=== PATIENT | female | born 1995 | race Caucasian/White ===

== ENCOUNTER 2023-04-21 07:41 | Inpatient (IN) ==
[2023-04-21] MEDS ORDERED: OXYTOCIN 30 UNITS/500 ML BAG IV PRN ×2 (09:24→09:28)
[2023-04-21] MEDS ORDERED: LIDOCAINE 1% LOCAL 20 ML VIAL INFIL PRN (09:24)
--- NOTE | 2023-04-21 09:33 | History & Physical Report ---
Date of Service April 21, 2023 Assessment & Plan (1) Supervision of normal intrauterine in primigravida: Plan: iup at 40 5/7 weeks with SPROM 6 hours ago will start pitocin per protocol planning unmedicated epidural if requested anticipate vaginal Admission and Anticipated Discharge Date Admission Date: April 21, 2023 History of Present Illness Primary Care Provider: Juan Bolton MD Patient is a 27 yo female EDC 04/16/23 presents at 40 5/7 weeks with SPROM for clear fluid at 0300 last night. no regular contractions yet. uncomplicated except for post-term gestation. GBS -negative Allergies Allergy/AdvReac Type Severity Reaction Status Date / Time No Known Allergies Allergy Verified 04/20/23 09:14 Home Medications Medication Instructions Recorded Confirmed Type prenat.vits,masha,oog-[id number] 1 tab PO DAILY 09/07/22 04/20/23 History Patient History Medical History History of anxiety Persistent headaches Surgical History H/O breast biopsy left fibroadenoma removal History of tonsillectomy and adenoidectomy History of wisdom tooth extraction Family History Mother Hypertension Sister Hypothyroidism Grandmother (Paternal) Breast cancer Grandmother (Maternal) Dyslipidemia Social History (Updated 09/07/22 @ 15:47 by Yennifer Camacho) Smoking Status: Never smoker Second Hand Exposure: No; Do You Dip or Chew Tobacco: No; Hx Alcohol Use: Yes Alcohol type: wine Hx Substance Use: No Preferred Language: Nepalese Communication Ability: Effective Visual Impairment: No Limitations Hearing Ability: Normal Water Main Pipe Layer Required: No Beliefs That Will Affect Care: None marital status: marital status details: Max(26) [phone] Current Living Situation: Spouse Current Living Situation Comment: lives with spouse, 1 dog. current occupational status: employed current occupation: [employer] Other Information That Helps Us Care for You: No Feels Safe at Home: Yes Safety Concerns: Feels Safe At This Time Childhood Exposure to Second-Hand Smoke: No caffeine: Yes (coffee) during the past year weight has: increased > 10 lbs Dental Care, Regularly: Yes Physical Activity Frequency: 3-4 Times per Week Physical Activity Frequency Comment: Gym Seatbelt Use: always Sunscreen Use: Yes Assistive Devices: None Review of Systems All systems reviewed & are unremarkable except as noted in HPI & below Physical Exam Constitutional: WD/WN, vitals as above Psychiatric: A+Ox3, euthymic affect Genitourinary: OB Exam Abdomen: + vertex, + estimated weight (7-8 pounds) and + irregular contractions Manual OB Exam: + cervical dilation 1 cm (1-2), + cervical effacement 50% and + station -2 OB Exam Monitor Tracing: + external FHT monitor used, + external uterine monitor used, + category I and + normal FHT variability Results & Data Vital Signs (Past 12 Hours) Vital Signs Pulse BP 04/21/23 08:23 85 130/69 Coding Level of Care Code None Diagnoses Supervision of normal intrauterine in primigravida Z34.00
[2023-04-21] MEDS: LACTATED RINGER'S 1,000 ML IV PRN ×2 (09:50→22:26)
[2023-04-21 09:56] LABS: Hematocrit (blood only) 33.6 % (37.0-47.0); Hemoglobin 11.7 g/dl (12.0-16.0); Mean Corpuscular Hemoglobin 30.8 pg (25.0-34.0); Mean Corpuscular Hgb Conc 34.8 g/dL (32.0-36.0); Mean Corpuscular Volume 88.4 fL (80.0-100.0); Mean Platelet Volume 12.2 fL (9.4-12.4); Platelet Count 157 K/uL (130-400); RDW Coefficient of Variation 13.9 % (11.5-14.5); RDW Standard Deviation 44.7 fL (36.4-46.3); White Blood Count 13.01 K/ul (4.8-10.8)
[2023-04-21] MEDS ORDERED: ePHEDrine sulfate 50 MG/ML AMP ONE (17:46)
[2023-04-21] MEDS ORDERED: SODIUM CHLORIDE 0.9% PF INJ 10 ML VIAL ONE (17:46)
[2023-04-21] MEDS ORDERED: fentaNYL citrate PF 100 MCG/2 ML VIAL ONE (17:46)
[2023-04-21] MEDS ORDERED: LIDOCAINE 2%/EPINEPHRINE 1:200,000 20 ML PF ONE (17:47)
[2023-04-21] MEDS ORDERED: BUPIVACAINE 0.25% PF 30 ML VIAL ONE (17:47)
--- NOTE | 2023-04-21 17:57 | Labor Progress Brief Note ---
Date of Service April 21, 2023 Subjective Patient now requesting epidural Assessment & Plan (1) Encounter for induction of labor: Plan epidural, then can AROM after. Admission and Anticipated Discharge Date Admission Date: April 21, 2023 Physical Exam Genitourinary: Results & Data Vital Signs (Past 12 Hours) Vital Signs Temp Pulse BP 04/21/23 16:34 98.1 F 73 121/75 04/21/23 12:31 98.1 F 80 121/67 04/21/23 11:01 97.9 F 75 123/75 04/21/23 08:23 85 130/69 Coding Level of Care Code None Diagnoses Encounter for induction of labor Z34.90
[2023-04-21] MEDS ORDERED: ePHEDrine sulfate 50 MG/ML AMP IV PRN (18:03)
[2023-04-21] MEDS ORDERED: SODIUM CHLORIDE 0.9% PF INJ 10 ML VIAL EPI PRN (18:03)
[2023-04-21] MEDS ORDERED: NALBUPHINE HCL INJ 10 MG/ML AMP IV PRN (18:03)
[2023-04-21] MEDS ORDERED: SODIUM CHLORIDE 0.9% PF INJ 10 ML VIAL EPI STA (18:03)
[2023-04-21] MEDS ORDERED: ROPIVACAINE 0.5% PF 5 MG/ML 20 ML VIAL EPI PRN (18:03)
[2023-04-21] MEDS ORDERED: NALOXONE HCL 0.4 MG/1 ML VIAL/CARP IV PRN (18:03)
[2023-04-21] MEDS ORDERED: LIDOCAINE 2% MPF LOCAL 5 ML VIAL EPI PRN (18:03)
[2023-04-21] MEDS ORDERED: fentaNYL citrate PF 100 MCG/2 ML VIAL EPI STA (18:03)
[2023-04-21] MEDS ORDERED: NALOXONE HCL 1 MG in SODIUM CHLORIDE 0.9% 1,000 ML IV PRN (18:03)
[2023-04-21] MEDS ORDERED: diphenhydrAMINE 50 MG/ML VIAL IV PRN (18:03)
[2023-04-21] MEDS ORDERED: BUPIVACAINE 0.25% PF 30 ML VIAL EPI STA (18:03)
[2023-04-21] MEDS ORDERED: LIDOCAINE 2%/EPINEPHRINE 1:200,000 20 ML PF EPI STA (18:03)
[2023-04-21] MEDS ORDERED: BUPIVACAINE 0.25% PF 30 ML VIAL EPI PRN (18:03)
[2023-04-21] MEDS ORDERED: fentaNYL citrate PF 100 MCG/2 ML VIAL EPI PRN (18:03)
--- NOTE | 2023-04-21 18:04 | Anesthesiology Consultation ---
Date of Service April 21, 2023 Assessment & Plan (1) Encounter for pre-operative examination: Chart Review Chart Review: Patient NOT seen in Pre Admission Testing and Acceptable Risk for Labor Epidural Consults Requested none History Height/Weight Height: 5 ft 4 in Weight: 68.492 kg Allergies Allergy/AdvReac Type Severity Reaction Status Date / Time No Known Allergies Allergy Verified 04/20/23 09:14 Medications Home Medications Medication Instructions Recorded Confirmed Last Taken prenat.vits,masha,uxf-viym-mywnj 1 tab PO DAILY 09/07/22 04/20/23 Unknown Active Medications Generic Name Dose Route Start Last Admin Trade Name Freq PRN Reason Stop Dose Admin Lactated Ringer's 1,000 mls @ 125 mls/hr 04/21/23 09:24 04/21/23 09:50 Lr IV 04/23/23 09: 125 mls/hr .Q8H PRN Administration L&D Protocol Protocol Oxytocin 30 units in 500 mls @ 16 mls/hr 04/21/23 09:28 04/21/23 16:30 Pitocin IV 04/23/23 09:27 0.96 units/hr .Q24H PRN 16 mls/hr Labor Induction/Augmentation Titration Protocol 0.96 UNITS/HR Past Medical History Medical History (Updated 04/21/23 @ 18:04 by Tomas Aquino MD) Encounter for pre-operative examination History of anxiety Persistent headaches Exercise / Class Metabolic Activity II 4-5 Yardwork/Stairs/Walk up hill Past Family History Family History Mother Hypertension Sister Hypothyroidism Grandmother (Paternal) Breast cancer Grandmother (Maternal) Dyslipidemia Past Surgical History Surgical History H/O breast biopsy left fibroadenoma removal History of tonsillectomy and adenoidectomy History of wisdom tooth extraction Past Anesthesia History No Hx of Anesthesia Complications and No Family Hx of Anesthesia Complications Social History Smoking Status: Never smoker Do You Dip or Chew Tobacco: No Hx Alcohol Use: Yes Alcohol type: wine Hx Substance Use: No Physical Exam Vital Signs Last Vital Signs Temp 36.7 C 04/21/23 16:34 Pulse 82 04/21/23 18:23 BP 120/70 04/21/23 18:23 Pulse Ox 97 04/21/23 18:23 Testing Laboratory Results 04/21/23 08:31
[2023-04-21] MEDS: fentaNYL 2MCG/ML ROPIVACAINE 1.25MG/ML 100 ML BAG EPI PRN (18:31)
[2023-04-22] MEDS ORDERED: NURSING L&D Epidural Breakthrough Pain Update ONE (02:48)
--- NOTE | 2023-04-22 03:11 | Labor Progress Brief Note ---
Date of Service April 22, 2023 Subjective Patient very pleased with epidural. I tell her that this time when I woke to check her FHT I noted elevated baseline so came out to check her. Does admit to feeling warm, after I discuss the possibility of fever. Assessment & Plan (1) Chorioamnionitis: Plan: Start abx, tylenol suppository, should be able to start 2nd stage soon. Admission and Anticipated Discharge Date Admission Date: April 21, 2023 Physical Exam Genitourinary: /+1 LOF clear to bloody Temp 101.3F currently [place] Q2 with pit @ 18 Results & Data Vital Signs (Past 12 Hours) Vital Signs Temp Pulse Resp BP Pulse Ox O2 Del Method 04/21/23 23:04 97.9 F 16 04/21/23 19:15 98.1 F 16 97 Room Air 04/22/23 03:08 95 H 98 04/22/23 03:03 88 99 04/22/23 02:58 89 04/22/23 02:58 90 108/53 L 98 04/22/23 02:53 96 H 100 04/22/23 02:48 91 H 98 04/22/23 02:47 90 93 04/22/23 02:30 18 04/22/23 02:30 18 04/22/23 02:44 92 H 107/57 L 04/22/23 02:43 93 H 100 04/22/23 02:38 104 H 96 04/22/23 02:34 111 H 90 04/22/23 02:33 128 H 93 04/22/23 02:28 115 H 98 04/22/23 02:23 118 H 97 04/22/23 02:18 96 H 98 04/22/23 02:13 115 H 112/76 94 04/22/23 02:08 106 H 98 04/22/23 02:03 102 H 99 04/22/23 02:00 18 04/22/23 02:00 18 04/22/23 01:58 93 H 106/67 99 04/22/23 01:56 90 92 04/22/23 01:53 82 99 04/22/23 01:48 82 96 04/22/23 01:43 83 106/58 L 97 04/22/23 01:38 84 97 04/22/23 01:30 16 04/22/23 01:30 16 04/22/23 01:33 80 97 04/22/23 01:29 76 113/66 04/22/23 01:28 71 97 04/22/23 01:23 72 97 04/22/23 01:18 87 96 04/22/23 01:13 75 113/67 98 04/22/23 01:08 73 98 04/22/23 01:03 75 98 04/22/23 01:00 98.4 F 83 18 94 04/22/23 00:58 86 115/71 97 04/22/23 00:53 74 97 04/22/23 00:48 74 97 04/22/23 00:44 73 108/66 04/22/23 00:43 77 98 04/22/23 00:38 87 93 04/22/23 00:37 79 93 04/22/23 00:33 69 96 04/22/23 00:31 80 92 04/22/23 00:28 71 122/73 95 04/22/23 00:23 74 96 04/22/23 00:21 70 94 04/22/23 00:18 69 96 04/22/23 00:13 71 04/22/23 00:13 71 120/69 96 04/22/23 00:08 73 96 04/22/23 00:03 76 97 04/22/23 00:00 76 18 93 04/21/23 23:58 72 109/65 95 04/21/23 23:55 99 H 93 04/21/23 23:53 77 95 04/21/23 23:49 72 94 04/21/23 23:48 72 95 04/21/23 23:43 76 97/53 L 96 04/21/23 23:38 73 95 04/21/23 23:33 74 95 04/21/23 23:30 16 04/21/23 23:30 16 04/21/23 23:28 74 94/51 L 96 04/21/23 23:23 73 97 04/21/23 23:18 73 96 04/21/23 23:13 100 H 101/59 L 96 04/21/23 23:09 79 94 04/21/23 23:08 77 95 04/21/23 23:03 76 96 04/21/23 22:58 96 04/21/23 22:58 87 04/21/23 22:58 86 102/60 04/21/23 22:53 71 96 04/21/23 22:48 75 96 04/21/23 22:43 87 106/72 97 04/21/23 22:38 71 98 04/21/23 22:33 69 95 04/21/23 22:30 69 94 04/21/23 22:28 74 110/67 95 04/21/23 22:25 71 94 04/21/23 22:23 70 95 04/21/23 22:18 70 95 04/21/23 22:14 66 108/58 L 04/21/23 22:13 74 96 04/21/23 22:08 76 96 04/21/23 22:07 76 94 04/21/23 22:03 75 96 04/21/23 21:58 68 04/21/23 21:58 72 112/67 96 04/21/23 21:53 69 95 04/21/23 21:48 75 96 04/21/23 21:43 77 111/67 96 04/21/23 21:38 80 95 04/21/23 21:37 86 94 04/21/23 21:33 75 95 04/21/23 21:28 100 H 04/21/23 21:28 96 H 107/59 L 95 04/21/23 21:23 84 97 04/21/23 21:18 91 H 95 04/21/23 21:13 84 90/52 L 97 04/21/23 21:10 87 94 04/21/23 21:08 85 96 04/21/23 21:03 86 96 04/21/23 20:59 91 H 104/54 L 04/21/23 20:58 88 97 04/21/23 20:53 92 H 96 04/21/23 20:48 91 H 97 04/21/23 20:44 95 H 109/57 L 04/21/23 20:43 91 H 96 04/21/23 20:38 86 96 04/21/23 20:33 82 95 04/21/23 20:32 86 93 04/21/23 20:28 77 04/21/23 20:28 85 93/50 L 95 04/21/23 20:23 83 95 04/21/23 20:18 84 95 04/21/23 20:13 81 96 04/21/23 20:14 78 105/57 L 04/21/23 20:08 78 95 04/21/23 20:05 86 94 04/21/23 20:03 88 96 04/21/23 19:58 80 113/55 L 96 04/21/23 19:53 74 96 04/21/23 19:48 82 96 04/21/23 19:43 74 117/71 98 04/21/23 19:38 85 97 04/21/23 19:33 93 H 97 04/21/23 19:28 83 113/70 95 04/21/23 19:23 85 95 04/21/23 19:21 85 93 04/21/23 19:18 89 97 04/21/23 19:13 81 96 04/21/23 19:12 114/70 04/21/23 19:08 96 H 97 04/21/23 19:07 88 113/70 04/21/23 19:03 92 H 97 04/21/23 19:02 190 H 109/55 L 04/21/23 18:58 78 96 04/21/23 18:57 82 117/63 04/21/23 18:53 90 97 04/21/23 18:52 82 117/62 04/21/23 18:48 96 H 96 04/21/23 18:46 99 H 111/56 L 04/21/23 18:43 87 04/21/23 18:43 84 125/60 97 04/21/23 18:40 109 H 113/60 04/21/23 18:38 79 97 04/21/23 18:37 85 115/67 04/21/23 18:34 83 112/63 04/21/23 18:33 94 H 97 04/21/23 18:31 84 111/66 04/21/23 18:28 88 115/73 97 04/21/23 18:25 91 H 118/78 04/21/23 18:23 82 120/70 97 04/21/23 18:20 96 H 132/61 04/21/23 18:18 85 97 04/21/23 18:14 79 120/73 04/21/23 18:13 85 97 04/21/23 18:10 78 125/76 04/21/23 18:08 78 98 04/21/23 18:03 76 99 04/21/23 16:34 98.1 F 73 121/75 Coding Level of Care Code None Diagnoses Chorioamnionitis O41.1290
[2023-04-22] MEDS ORDERED: AMPICILLIN/SULBACTAM SOD 3,000 MG in SODIUM CHLOR 0.9% MINI-B 100 ML IV STA (03:13)
[2023-04-22] MEDS ORDERED: ACETAMINOPHEN 650 MG SUPP PR STA (03:14)
[2023-04-22] MEDS: fentaNYL 2MCG/ML ROPIVACAINE 1.25MG/ML 100 ML BAG EPI ONE (03:17)
[2023-04-22] MEDS: fentaNYL 2MCG/ML ROPIVACAINE 1.25MG/ML 100 ML BAG EPI PRN (03:21)
[2023-04-22] MEDS: LACTATED RINGER'S 1,000 ML IV PRN (04:59)
--- NOTE | 2023-04-22 08:09 | Delivery Summary ---
Vaginal Delivery Summary Date of Service April 22, 2023 Vaginal Delivery Summary DIAGNOSES: 1. [place] intrauterine at 40w6d gestation. 2. Induction of Labor, following PROM. 3. Group B Streptococcus Neg. 4. Chorioamnionitis. PROCEDURE: Spontaneous vaginal delivery and repair of second degree laceration. SURGEON: Ninoska Cisneros MD. SLEDGER: None. ESTIMATED BLOOD LOSS: 350 mL. COMPLICATIONS: None. PLACENTA: Spontaneous and intact with a 3-vessel cord. DISPOSITION: Stable to labor and delivery. DESCRIPTION: The patient pushed well and brought the head to in DOA position. The 's head was allowed to deliver with contraction force and no further active pushing, with the perineum protected during this time. There was one tight loop of nuchal cord, reduced at the perineum. The left shoulder was anterior. The shoulders and body delivered without any difficulty, and the infant was placed on the maternal abdomen. It was vigorous and moving all extremities, and making respiratory efforts. The cord was doubly clamped by the MD and then cut by the FOB. The placenta delivered spontaneously and was noted to be intact and with a 3VC. The cervix, vagina and perineum were examined and were found to have a second degree laceration which was repaired in the usual manner using vicryl suture, including a crown stitch to rebuild the perineal body. The fundus was firm and lochia minimal immediately after delivery. [facility] Vaginal Delivery Charge Vaginal Delivery Codes: 40173 global code for the antepartum, delivery, and post-
--- NOTE | 2023-04-22 09:08 | Anesthesia Procedure Note ---
Date of Service April 22, 2023 Anesthesia Post Epidural Note Vital Signs Vital Signs: Temp Pulse Resp BP Pulse Ox O2 Del Method 38.4 C H 86 16 108/76 93 Room Air 04/22/23 05:37 04/22/23 09:00 04/22/23 05:30 04/22/23 09:00 04/22/23 08:19 04/21/23 19:15 Pain Intensity Abdomen: Pain Intensity: 0 Notes Mental Status: alert / awake / arousable and participated in evaluation Nausea / Vomiting: adequately controlled Pain: adequately controlled Airway Patency, RR, SpO2: stable & adequate BP & HR: stable & adequate Hydration State: stable & adequate Neuraxial Anesthesia: was administered and sensory block is resolving Anesthetic Complications: no major complications apparent Epidural: Removed without complications and With tip intact
[2023-04-22] MEDS ORDERED: oxyCODONE/ACETAMINOPHEN 5mg/325mg TAB PO PRN (09:10)
[2023-04-22] MEDS ORDERED: BENZOCAINE 20% SPRY 85 APPLN/85 GM CAN EXT PRN (09:10)
[2023-04-22] MEDS ORDERED: HYDROCORTISONE ACETATE 25 MG SUPP PR PRN (09:10)
[2023-04-22] MEDS ORDERED: DIPHTHERIA/TETANUS/PERTUSSIS Vaccine (Tdap, Age 7+yrs) 0.5mL SYR/VL IM ONE (09:10)
[2023-04-22] MEDS ORDERED: ACETAMINOPHEN 325 MG TAB PO PRN (09:10)
[2023-04-22] MEDS: IBUPROFEN 600 MG TAB PO PRN ×3 (09:39→19:59)
[2023-04-22] MEDS: DOCUSATE SODIUM 100 MG CAP PO SCH (20:29)
[2023-04-23] MEDS: IBUPROFEN 600 MG TAB PO PRN ×3 (00:31→12:10)
[2023-04-23 07:39] LABS: Hematocrit (blood only) 30.3 % (37.0-47.0); Hemoglobin 10.4 g/dl (12.0-16.0); Mean Corpuscular Hemoglobin 31.2 pg (25.0-34.0); Mean Corpuscular Hgb Conc 34.3 g/dL (32.0-36.0); Mean Platelet Volume 11.7 fL (9.4-12.4); Platelet Count 144 K/uL (130-400); RDW Standard Deviation 46.4 fL (36.4-46.3); Red Blood Count 3.33 M/uL (4.20-5.40); White Blood Count 24.54 K/ul (4.8-10.8)
--- NOTE | 2023-04-23 07:49 | Obstetrical Progress Note ---
Date of Service April 23, 2023 Assessment & Plan (1) Encounter for care and examination after delivery: satisfactory course continue current care plan Subjective Ambulation: ambulating normally Voiding: no voiding problems Passing Gas:: Yes Diet Tolerance:: regular diet Lochia:: Small Feeding Type:: breast feeding minimal cramping Review of Systems All systems reviewed & are unremarkable except as noted in HPI & below Physical Exam Constitutional WD/WN, vitals as above Psychiatric A+Ox3, euthymic affect Genitourinary OB Exam Abdomen: + fundal height (1 below U) Fundus: + firm; not tender Results & Data Vital Signs (Past 12 Hours) Vital Signs Temp Pulse Resp BP Pulse Ox O2 Del Method 04/23/23 03:17 97.7 F 82 16 101/58 L 97 Room Air 04/23/23 00:01 97.9 F 82 16 105/63 97 Room Air 04/22/23 20:35 97.7 F 89 20 111/71 93 Room Air
[2023-04-23] MEDS: DOCUSATE SODIUM 100 MG CAP PO SCH ×2 (08:13→20:24)
[2023-04-23] MEDS: PRENATAL VITAMIN 1 TAB PO SCH (08:13)
[2023-04-23] MEDS: fentaNYL 2MCG/ML ROPIVACAINE 1.25MG/ML 100 ML BAG EPI ONE (18:55)
[2023-04-24] MEDS: IBUPROFEN 600 MG TAB PO PRN ×2 (05:55→11:43)
--- NOTE | 2023-04-24 06:07 | Obstetrical Progress Note ---
Date of Service <Trent Baker MD - Last Filed: 04/24/23 07:28> April 24, 2023 Assessment & Plan <Trent Baker MD - Last Filed: 04/24/23 07:28> (1) Encounter for care and examination after delivery: Plan 27 yo post- day 2 s/p Vital Signs reviewed and WNL. Hemoglobin Reviewed. 10.5 (today). - Blood Type: O+, GBS-, Rubella Immune. - Pt is doing well clinically. Encourage Breast Feeding. Pt counselled on discharge instructions <Yi Caputo MD, FACOG - Last Filed: 04/24/23 07:49> (1) Encounter for care and examination after delivery: Subjective <Trent Baker MD - Last Filed: 04/24/23 07:28> 27 yo post- day 2 s/p Ambulation: ambulating normally Voiding: no voiding problems Passing Gas:: Yes Diet Tolerance:: regular diet Lochia:: Small Feeding Type:: Current Pain Level: no cramping Resting comfortably this AM in NAD. Denies CORTES, CP, SOB, N/V/D, LE pain/swelling Review of Systems All systems reviewed & are unremarkable except as noted in HPI & below Physical Exam <Trent Baker MD - Last Filed: 04/24/23 07:28> General: patient resting comfortably, NAD, non-toxic in appearance, AA&O x 4, answers questions appropriately. Skin: warm, dry, intact HEENT: NC/AT, anicteric sclera, conjunctiva without injection, moist mucus membranes. Heart: +S1/S2, regular, no m/r/g Lungs: equal air entry bilaterally, no rales/rhonchi/wheezes Abd: +BS, soft, NT/ND, uterine fundus firm at umbilicus Ext: warm, no clubbing/cyanosis or edema, Randal's neg. Neuro: nonfocal, patient AA&O x 4, speech intact, no facial droop, moving all extremities on command. Results & Data <Trent Baker MD - Last Filed: 04/24/23 07:28> Vital Signs (Past 12 Hours) Vital Signs Temp Pulse Resp BP Pulse Ox O2 Del Method 04/23/23 23:05 85 16 114/76 98 Room Air 04/23/23 20:25 36.4 C L 81 16 116/78 97 Room Air <Yi Caputo MD, FACOG - Last Filed: 04/24/23 07:49> Co-Signing Physician Notes Resident Physician Supervision Note: I interviewed and examined the patient. Discussed with Dr. Marty Baker and agree with findings and plan as documented in the note. Any exceptions or clarifications are listed here: [None] Documented By: Yi Caputo MD, FACOG Resident Activity Tracking <Trent Baker MD - Last Filed: 04/24/23 07:28> Resident Involvement: Resident Care Provided Care Provided: OB Delivery
[2023-04-24 06:29] LABS: Hematocrit (blood only) 30.1 % (37.0-47.0); Hemoglobin 10.5 g/dl (12.0-16.0)
[2023-04-24] MEDS: DOCUSATE SODIUM 100 MG CAP PO SCH (07:34)
[2023-04-24] MEDS: PRENATAL VITAMIN 1 TAB PO SCH (07:34)
== END 2023-04-24 12:00 | disposition home or self-care (01) | DRG 805 ==
LOC: 4S1 07:41 → 4E2 04-22 11:24

== ENCOUNTER 2025-02-19 07:49 | Inpatient (IN) ==
[2025-02-19] MEDS ORDERED: OXYTOCIN 30 UNITS/NSS 30 UNITS/500 ML BAG IV PRN ×2 (07:59→17:08)
[2025-02-19] MEDS ORDERED: LIDOCAINE 1% LOCAL 20 ML VIAL INFIL PRN (07:59)
[2025-02-19] MEDS ORDERED: CALCIUM CARBONATE 500 MG CHEWABLE TAB PO PRN (07:59)
[2025-02-19 08:36] LABS: Hematocrit (blood only) 33.2 % (37.0-47.0); Hemoglobin 11.4 g/dl (12.0-16.0); Mean Corpuscular Hemoglobin 30.2 pg (25.0-34.0); Mean Corpuscular Volume 88.1 fL (80.0-100.0); Platelet Count 125 K/uL (130-400); RDW Standard Deviation 45.1 fL (36.4-46.3); Red Blood Count 3.77 M/uL (4.20-5.40); White Blood Count 8.10 K/ul (4.8-10.8)
[2025-02-19] MEDS: LACTATED RINGER'S 1,000 ML IV PRN (08:54)
[2025-02-19] MEDS: OXYTOCIN 30 UNITS/NSS 30 UNITS/500 ML BAG IV PRN (08:54)
[2025-02-19] MEDS ORDERED: SODIUM CHLORIDE 0.9% PF INJ 10 ML VIAL EPI PRN (12:45)
[2025-02-19] MEDS ORDERED: BUPIVACAINE 0.25% PF 30 ML VIAL EPI PRN (12:45)
[2025-02-19] MEDS ORDERED: LIDOCAINE 2% MPF LOCAL 5 ML VIAL EPI PRN (12:45)
[2025-02-19] MEDS ORDERED: NALOXONE HCL 1 MG in SODIUM CHLORIDE 0.9% 1,000 ML IV PRN (12:45)
[2025-02-19] MEDS ORDERED: diphenhydrAMINE 50 MG/ML VIAL IV PRN (12:45)
[2025-02-19] MEDS ORDERED: fentANYL 2 MCG/ML BUPIVacaine 0.125%-NSS 100ML BAG EPI PRN (12:45)
[2025-02-19] MEDS ORDERED: NALBUPHINE HCL INJ 10 MG/ML AMP IV PRN (12:45)
[2025-02-19] MEDS ORDERED: NALOXONE HCL 0.4 MG/1 ML VIAL/CARP IV PRN (12:45)
[2025-02-19] MEDS ORDERED: ROPIVACAINE 0.5% PF 5 MG/ML 20 ML VIAL EPI PRN (12:45)
--- NOTE | 2025-02-19 12:45 | Anesthesiology Consultation ---
Date of Service February 19, 2025 Assessment & Plan Chart Review Chart Review: Acceptable Risk for Labor Epidural Consults Requested none History Height/Weight Height: 5 ft 4 in Weight: 74.843 kg Allergies Allergy/AdvReac Type Severity Reaction Status Date / Time No Known Allergies Allergy Verified 02/17/25 13:46 Medications Home Medications Medication Instructions Recorded Confirmed Last Taken ferrous sulfate 325 mg (65 mg 325 mg PO DAILY 01/27/25 02/19/25 02/17/25 iron) tablet (Iron (ferrous sulfate)) vits no.124-ferrous fum 1 tab PO DAILY 01/27/25 02/19/25 02/19/25 27 mg iron-folic acid 800 mcg tablet ( Vitamin) Active Medications Generic Name Dose Route Start Last Admin Trade Name Freq PRN Reason Stop Dose Admin Lactated Ringer's 1,000 mls @ 125 mls/hr 02/19/25 07:59 02/19/25 08:54 Lr IV 02/21/25 07:58 125 mls/hr .Q8H PRN Administration L&D Protocol Protocol Oxytocin 30 units in 500 mls @ 12 mls/hr 02/19/25 08:00 02/19/25 11:30 Pitocin 30 Units/Nss IV 02/21/25 07:59 0.72 units/hr .Q24H PRN 12 mls/hr Labor Induction/Augmentation Titration Protocol 0.72 UNITS/HR Past Medical History Medical History Varicella vaccination Fatigue Chorioamnionitis Persistent headaches History of anxiety Past Family History Family History Mother Hypertension Sister Hypothyroidism Grandmother (Paternal) Breast cancer Grandmother (Maternal) Dyslipidemia Denies family history of Ovarian cancer Colorectal cancer Past Surgical History Surgical History H/O breast biopsy left fibroadenoma removal, 2013 History of tonsillectomy and adenoidectomy History of wisdom tooth extraction Social History Smoking Status: Never smoker Do You Dip or Chew Tobacco: No Hx Alcohol Use: Yes Alcohol type: wine Hx Substance Use: No Physical Exam Vital Signs Last Vital Signs Temp 36.9 C 02/19/25 12:00 Pulse 77 02/19/25 12:00 Resp 18 07/30/25 12:00 BP 115/65 02/19/25 12:00 Testing Laboratory Results 02/19/25 08:10
[2025-02-19] MEDS: fentANYL 2 MCG/ML BUPIVacaine 0.125%-NSS 100ML BAG ONE (13:09)
[2025-02-19] MEDS: LIDOCAINE 2%/EPINEPHRINE 1:200,000 20 ML PF ONE (13:10)
[2025-02-19] MEDS: BUPIVACAINE 0.25% PF 30 ML VIAL EPI STA (13:21)
[2025-02-19] MEDS: SODIUM CHLORIDE 0.9% PF INJ 10 ML VIAL EPI STA (13:21)
[2025-02-19] MEDS: BUPIVACAINE 0.25% PF 30 ML VIAL ONE (13:21)
[2025-02-19] MEDS: LIDOCAINE 2%/EPINEPHRINE 1:200,000 20 ML PF EPI STA (13:21)
[2025-02-19 15:10] VITALS: RESP 16
[2025-02-19] MEDS: SODIUM CHLORIDE 0.9% PF INJ 10 ML VIAL ONE (15:59)
--- NOTE | 2025-02-19 16:55 | Delivery Summary ---
Vaginal Delivery Summary Date of Service February 19, 2025 Vaginal Delivery Summary and 2nd Degree LAC Patient is 41 weeks today GBS negative uncomplicated second baby initially given Pitocin requested epidural artificial rupture membranes for clear fluid afterwards she presented fully dilated pushed for only 6 minutes delivering over occiput anterior position clear fluid no nuchal cord gentle traction of the baby no excessive force live vigorous male infant Cord clamped a nd cut cord blood obtained placenta removed with traction IV Pitocin started uterine tone improved small second-degree tear repaired with 3-0 Vicryl sponge and instrument counts QBL was 167 mL [facility] Vaginal Delivery Charge Delivery Type Details: and 2nd Degree LAC
[2025-02-19] MEDS ORDERED: HYDROCORTISONE ACETATE 25 MG SUPP PR PRN (17:08)
--- NOTE | 2025-02-19 18:06 | Anesthesia Procedure Note ---
Date of Service February 19, 2025 Anesthesia Post Epidural Note Vital Signs Vital Signs: Temp Pulse Resp BP Pulse Ox O2 Del Method 36.7 C 97 H 16 118/71 93 Room Air 02/19/25 16:55 02/19/25 17:54 02/19/25 16:55 02/19/25 17:54 02/19/25 17:28 02/19/25 12:55 Notes Mental Status: alert / awake / arousable and participated in evaluation Nausea / Vomiting: adequately controlled Pain: adequately controlled Airway Patency, RR, SpO2: stable & adequate BP & HR: stable & adequate Hydration State: stable & adequate Neuraxial Anesthesia: was administered and sensory block is resolving Anesthetic Complications: no major complications apparent and Pt Satisfied with anesthetic care Epidural: Removed without complications and With tip intact
[2025-02-19] MEDS: DOCUSATE SODIUM 100 MG CAP PO SCH (20:34)
[2025-02-19] MEDS: BENZOCAINE 20% SPRY 85 APPLN/85 GM CAN EXT PRN (20:34)
[2025-02-19] MEDS: ACETAMINOPHEN 325 MG TAB PO PRN (22:52)
[2025-02-20] MEDS: IBUPROFEN 600 MG TAB PO PRN (03:51)
[2025-02-20 06:36] LABS: Hematocrit (blood only) 28.1 % (37.0-47.0); Hemoglobin 9.7 g/dl (12.0-16.0); Mean Corpuscular Hemoglobin 31.2 pg (25.0-34.0); Mean Corpuscular Volume 90.4 fL (80.0-100.0); Platelet Count 124 K/uL (130-400); RDW Standard Deviation 46.9 fL (36.4-46.3); Red Blood Count 3.11 M/uL (4.20-5.40); White Blood Count 11.69 K/ul (4.8-10.8)
--- NOTE | 2025-02-20 07:10 | Obstetrical Progress Note ---
Date of Service February 20, 2025 Assessment & Plan (1) Encounter for supervision of normal in multigravida: day 1 she is doing well she wishes to go home later today as long as the baby is okay to go she has no depression no extremity pain Subjective Ambulation: ambulating normally Voiding: no voiding problems Passing Gas:: Yes Diet Tolerance:: regular diet Lochia:: Small Physical Exam Constitutional WD/WN, vitals as above well developed and well nourished Respiratory normal respiratory effort, lungs clear to auscultation normal respiratory effort Cardiovascular RRR, no murmur, no edema Gastrointestinal (Abdomen) normal bowel sounds, soft, nontender, no hepatosplenomegaly Results & Data Vital Signs (Past 12 Hours) Vital Signs Temp Pulse Resp BP Pulse Ox O2 Del Method 02/20/25 03:40 98.1 F 78 16 109/67 98 Room Air 02/19/25 23:30 97.9 F 87 16 114/69 Room Air 02/19/25 19:15 97.5 F L 80 16 121/75 98 Room Air
[2025-02-20 07:53] VITALS: BP 125/79; PULSE 77; O2SAT 97
[2025-02-20] MEDS: DIPHTHER/TETAN/PERTUS Vaccine (Tdap, Adol/Adult) 0.5mL IM ONE (08:15)
[2025-02-20] MEDS: PRENATAL VITAMIN 1 TAB PO SCH (08:16)
[2025-02-20 12:14] VITALS: TEMP 97.7
== END 2025-02-20 18:21 | disposition home or self-care (01) | DRG 807 ==
LOC: 4S1 07:49 → 4E2 19:15